=== PATIENT | male | born 1955 | race Two or more races ===

== ENCOUNTER 2018-02-03 23:23 | Emergency (ER) | payer OTHER ==
[~2018-02-03] VITALS: Ht 175.3 cm; Wt 113.4 kg
[2018-02-03] MEDS ORDERED: NEURONTIN800 MG (23:33)
[2018-02-04] MEDS ORDERED: PERCOCET 5-3251 EACH PO (06:12)
== END 2018-02-04 07:25 | disposition home or self-care (01) ==
LOC: ER 23:23
DX: M51.36 Other intervertebral disc degeneration, lumbar region (principal); M54.5 Low back pain